=== PATIENT | male | born 1990 | race Caucasian/White ===

== ENCOUNTER 2017-10-25 09:23 | Emergency (ER) | END 2017-10-25 12:40 | disposition home or self-care (01) ==

== ENCOUNTER 2018-12-01 18:51 | Emergency (ER) | payer OTHER ==
[~2018-12-01] VITALS: Ht 157.5 cm; Wt 81.6 kg
[~2018-12-01 18:51] MED LIST: IBUP-1542 PO; ONDA4TAB14 PO
[2018-12-01 18:59] VITALS: Ht 157.5 cm; Wt 81.6 kg
[2018-12-01] MEDS ORDERED: ONDANSETRON (ODT) 4 MG TAB ODT STA (21:15)
--- NOTE | 2018-12-01 21:17 | ERD ---
ER Documentation Chief Complaint Chief Complaint RUQ ab pain today, hx gallstones HPI This is a 28-year-old male presents here in emergency department with complaints of right upper abdominal pain that started yesterday and got worse today. Stated that this started after eating fatty foods. Added that he has history of gallstones. Denies headache, head injury, loss of consciousness, neck pain, neck stiffness, difficulty fungal difficult breathing lying flat, shoulder pain, chest pain, back pain, constipation, diarrhea, vomiting, urinary symptoms, loss of bowel rodo dder control, trauma, injury, falls, difficulty walking, recent major surgery in the last 3 weeks, recent antibiotic use in the last 3 months, fever, chills, seizures, numbness or tingling sensation. Past medical history: Gallstones. Denies surgical history. Family history of gallstones. ROS All systems reviewed and are negative except as per history of present illness. Medications Home Meds Active Scripts Omeprazole* (Omeprazole*) 40 Mg Capsule.dr, 40 MG PO DAILY, #30 CAP Prov:PASILABANBRANDIAR F 12/01/18 Ondansetron Hcl* (Zofran*) 4 Mg Tablet, 4 MG PO Q8H PRN for NAUSEA AND/OR VOMITING, #30 TAB Prov:PASILABANBRANDIAR F 12/01/18 Naproxen* (Naprosyn*) 500 Mg Tablet, 500 MG PO BID PRN for PAIN AND/OR INFLAMMATION, #30 TAB Prov:PASILABANBRANDIAR F 12/01/18 Ondansetron (Ondansetron Odt) 4 Mg Tab.rapdis, 4 MG PO Q6H PRN for NAUSEA AND/OR VOMITING, #30 TAB Prov:SUNDEEP NATION MD 10/25/17 Ibuprofen* (Motrin*) 600 Mg Tab, 600 MG PO Q6H PRN for PAIN AND OR ELEVATED TEMP, #30 TAB Prov:SUNDEEP NATION MD 10/25/17 Allergies Allergies: Coded Allergies: No Known Allergy (Unverified , 10/25/17) PMhx/Soc Medical and Surgical Hx: pt denies Surgical Hx History of Surgery: No Anesthesia Reaction: No Hx Neurological Disorder: No Hx Respiratory Disorders: No Hx Cardiac Disorders: No Hx Psychiatric Problems: No Hx Miscellaneous Medical Probl: Yes (gallstones) Hx Alcohol Use: No Hx Substance Use: No Hx Tobacco Use: No Smoking Status: Never smoker Physical Exam Vitals Physical Exam Const: No acute distress Head: Atraumatic Eyes: Normal Conjunctiva ENT: Normal External Ears, Nose and Mouth. Neck: Full range of motion. No meningismus. Resp: Clear to auscultation bilaterally. Chest area: No vesicular lesions to the chest area. Cardio: Regular rate and rhythm, no murmurs Abd: Soft, non tender, non distended. Normal bowel sounds. There is right upper abdominal tenderness to light and deep palpation during inspiration. Negative Walter sign (heel jar test). Negative Rovsing sign. Negative psoas sign. No CVA tenderness. Able to jump 3 times without developing lower abdominal pain. Skin: No petechiae or rashes Back: No midline or flank tenderness Ext: No cyanosis, or edema Neur: Awake and alert. No neurological deficits. Psych: Normal Mood and Affect Results 24 hrs Laboratory Tests Test 12/01/18 21:45 White Blood Count 9.5 10^3/ul Red Blood Count 5.45 10^6/ul Hemoglobin 15.1 g/dl Hematocrit 45.6 % Mean Corpuscular Volume 83.7 fl Mean Corpuscular Hemoglobin 27.7 pg Mean Corpuscular Hemoglobin Concent 33.1 g/dl Red Cell Distribution Width 13.0 % Platelet Count 321 10^3/UL Mean Platelet Volume 10.1 fl Immature Granulocytes % 0.200 % Neutrophils % 66.2 % Lymphocytes % 27.3 % Monocytes % 5.2 % Eosinophils % 0.6 % Basophils % 0.5 % Nucleated Red Blood Cells % 0.0 /100WBC Immature Granulocytes # 0.020 10^3/ul Neutrophils # 6.3 10^3/ul Lymphocytes # 2.6 10^3/ul Monocytes # 0.5 10^3/ul Eosinophils # 0.1 10^3/ul Basophils # 0.1 10^3/ul Nucleated Red Blood Cells # 0.0 10^3/ul Urine Color YELLOW Urine Clarity CLEAR Urine pH 7.0 Urine Specific Taft 1.019 Urine Ketones NEGATIVE mg/dL Urine Nitrite NEGATIVE mg/dL Urine Bilirubin NEGATIVE mg/dL Urine Urobilinogen NEGATIVE mg/dL Urine Leukocyte Esterase NEGATIVE Zahraa/ul Urine Hemoglobin NEGATIVE mg/dL Urine Glucose NEGATIVE mg/dL Urine Total Protein NEGATIVE mg/dl Sodium Level 139 mmol/L Potassium Level 4.0 mmol/L Chloride Level 101 mmol/L Carbon Dioxide Level 30 mmol/L Anion Gap 8 Blood Urea Nitrogen 8 mg/dl Creatinine 0.71 mg/dl Est Glomerular Filtrat Rate mL/min > 60 mL/min Glucose Level 110 mg/dl Calcium Level 9.7 mg/dl Total Bilirubin 0.2 mg/dl Direct Bilirubin 0.00 mg/dl Indirect Bilirubin 0.2 mg/dl Aspartate Amino Transf (AST/SGOT) 34 IU/L Alanine Aminotransferase (ALT/SGPT) 42 IU/L Alkaline Phosphatase 124 IU/L Total Protein 7.9 g/dl Albumin 4.6 g/dl Globulin 3.30 g/dl Albumin/Globulin Ratio 1.39 Amylase Level 83 U/L Lipase 72 U/L Current Medications Medications Dose Sig/Nicki Start Time Status Last (Trade) Ordered Route PRN Stop Time Admin Dose Reason Admin Ondansetron 4 mg ONCE STAT 12/01/18 DC 12/01/18 HCl (Zofran ODT 21:15 21:55 Odt) 12/01/18 21:17 Famotidine 40 mg ONCE ONCE 12/01/18 DC 12/01/18 (Pepcid) PO 21:30 21:55 12/01/18 21:31 40 ml ONCE ONCE 12/01/18 DC 12/01/18 Miscellaneous PO 21:30 21:55 Medication 12/01/18 21:31 (Gi Cocktail (2)) Procedures/MDM Diagnostic tests: Urinalysis: Reviewed. Blood works: Reviewed. Ultrasound of the gallbladder: 1. Cholelithiasis without direct sonographic evidence of acute cholecystitis or biliary ductal obstruction. 2. Sonographically unremarkable liver.3. Sonographically unremarkable right kidney. Chest x-ray: Unremarkable chest. Treatment: Zofran ODT. Pepcid p.o. GI cocktail. Re-evaluation: Negative Perera sign. Negative Walter sign (heel jar test). Negative psoas sign. Negative Rovsing sign. No CVA tenderness. Able to jump 5 times without developing lower abdominal pain. Ambulatory with steady gait without pain to abdomen. No neurological deficit. Stated that he feels much be tter at this time and is comfortable going home. Differential diagnosis I have low suspicion for sepsis, acute cholecystitis, diverticulitis, diverticulitis with abscess, pancreatitis, bowel obstruction, appendicitis, pyelonephritis, nephrolithiasis, obstructing kidney stones, septic stone, bowel infarction/mesenteric ischemia. Final diagnosis: Cholelithiasis without evidence of acute cholecystitis or biliary duct obstruction. Prescription: Naprosyn. Omeprazole. Zofran. Follow-up with PCP in the next 24-48 hours. Come back here in the emergency department for any new symptoms or any worsening symptoms. All questions and concerns were answered. Patient and family members verbalized understanding and agreed with plan of care. Hemodynamically stable on discharge. Departure Diagnosis: Primary Impression: Abdominal pain Additional Impression: Cholelithiasis Condition: Stable Additional Instructions: Follow-up with PCP in the next 24-48 hours. Come back here in the emergency department for any new symptoms or any worsening symptoms. ANSON LANDEROS Dec 01, 2018 21:17
[2018-12-01] MEDS ORDERED: FAMOTIDINE 20 MG TAB PO ONE (21:30)
[2018-12-01] MEDS ORDERED: LIDOCAINE/MYLANTA 40 ML BTL PO ONE (21:30)
[2018-12-01] MEDS ORDERED: NAPR-985 PO (22:37)
[2018-12-01] MEDS ORDERED: ONDA4TAB8 PO (22:38)
[2018-12-01] MEDS ORDERED: OMEP40CA6 PO (22:39)
== END 2018-12-01 23:01 | disposition home or self-care (01) ==
LOC: FTE 18:51
DX: K80.20 Calculus of gallbladder without cholecystitis without obstruction (principal)
CPT/HCPCS: 36415; 71046; 76705; 80053; 81003; 82150; 83690; 85025